=== PATIENT | male | born 1965 | race Caucasian/White ===

== ENCOUNTER 2021-07-15 00:12 | Day surgery (SDC) | payer OTHER, SELFPAY ==
[2021-07-08 11:41] VITALS: BMI 26.7
[2021-07-15 06:56] VITALS: BP 123/92; PULSE 89; RESP 20; TEMP 36.2; O2SAT 99; BMI 26.4
[2021-07-15] MEDS: LACTATED RINGERS 1,000 ML 150 ML IV CONT (07:13)
--- NOTE | 2021-07-15 07:21 | WPDGICN ---
Assessment and Plan Assessment and plan (1) Encounter for screening colonoscopy: Code(s): Z12.11 - Encounter for screening for malignant neoplasm of colon Status: Acute Assessment and Plan: Patient presents today for screening colonoscopy. He appears to be at average risk for colon polyps. Further recommendations will be given after endoscopy. GI Consult Note Consult date/time: 07/15/21 07:21 HPI: Traivs Perez Jr. is a 56 year old male Presents for screening colonoscopy. Patient reports that his current weight appetite and bowel movements are normal. He denies abdominal pain. Patient has had no bleeding. Patient denies any prior history of colon polyps has never had previous colonoscopy. Family history is noncontributory. Neoplasia screening will be performed today. Review of Systems Review of Systems: All systems reviewed & are unremarkable except as noted in HPI and below PMFSH Family History Family History Father Family history of malignant neoplasm, Onset Age: 55 Patient's father is Mother Family history of diabetes mellitus in first degree relative Social History Social History Smoking status: Never smoker Second hand tobacco smoke exposure: No Smoking end date: 05/07/95 Alcohol intake: current Drinks per week: 12 Alcohol use details: BEERS Substance use: never Substance use type: does not use Living arrangements: with family Spiritual care concerns: No Meds Home Medications and Allergies Home Medications Medication Instructions Recorded Confirmed Type cyanocobalamin (vitamin B-12) 1,000 mcg PO DAILY 03/14/19 07/08/21 History 1,000 mcg capsule bupropion HCl 300 mg 24 hr tablet, 300 mg PO QAM #90 tablet 03/16/21 07/08/21 Rx extended release alprazolam [Xanax] 0.5 mg PO BID PRN 07/15/21 07/08/21 History Allergies Allergy/AdvReac Type Severity Reaction Status Date / Time No Known Allergies Allergy Mild Verified 07/15/21 06:55 Vital Signs Vital Signs - 24 hr 07/15/21 06:56 Temperature 97.1 F L Pulse Rate 89 Respiratory Rate 20 Blood Pressure 123/92 H Pulse Oximetry 99 Exam Narrative: Physical exam reveals patient to be alert. Vital signs stable. HEENT exam is unremarkable. Patient is anicteric. Lungs are clear to auscultation and percussion. Heart is without murmur or extra sounds. Abdominal exam bowel sounds are present soft nontender with no organomegaly. Digital external rectal exam is normal.
--- NOTE | 2021-07-15 07:36 | P.PNAN_ITS ---
Anes - Initial Pre Proc Eval Procedure: Operation Date: 07/15/21 08:00 Proposed Procedures p Screening Colonoscopy - Seth Garsia MD Date/Time: 07/15/21 07:36 Surgeon: Seth Garsia MD Pre Op Diagnosis: hx of colon polyps, neoplasm screening Patient Data Age: 56 Gender: M Height: 1.91 m Weight: 95.8 kg Last Vital Signs Temp 97.1 F L 07/15/21 06:56 Pulse 89 07/15/21 06:56 Resp 20 07/15/21 06:56 BP 123/92 H 07/15/21 06:56 Pulse Ox 99 07/15/21 06:56 Allergies Allergy/AdvReac Type Severity Reaction Status Date / Time No Known Allergies Allergy Mild Verified 07/15/21 06:55 Home Medications Medication Instructions Recorded Confirmed Type cyanocobalamin (vitamin B-12) 1,000 mcg PO DAILY 03/14/19 07/08/21 History 1,000 mcg capsule bupropion HCl 300 mg 24 hr tablet, 300 mg PO QAM #90 tablet 03/16/21 07/08/21 Rx extended release alprazolam [Xanax] 0.5 mg PO BID PRN 07/15/21 07/08/21 History Patient hx anesthesia problems: none Family hx anesthesia problems: none Results Review: All pre-operative results and documents have been reviewed as part of the pre-operative evaluation. [facility] Past Medical History Medical History (Updated 07/15/21 @ 07:32 by Blaine Major MD) Anxiety and depression Hyperlipidemia Family History Family History Father Family history of malignant neoplasm, Onset Age: 55 Patient's father is Mother Family history of diabetes mellitus in first degree relative Social History Social History Smoking status: Never smoker Second hand tobacco smoke exposure: No Smoking end date: 05/07/95 Alcohol intake: current Drinks per week: 12 Alcohol use details: BEERS Substance use: never Substance use type: does not use Living arrangements: with family Spiritual care concerns: No Anes - Eval Final PreProcedure Day of Procedure 07/15/21 07:36 Patient weight: normal Heart: regular rate and rhythm Lungs: clear to auscultation Airway: Mallampati scale class III Neurological: alert and oriented Last oral intake: >/= 8 hours ASA classification: II Emergent: no Anesthetic plan: proceed Anesthesia type and monitoring: general GIVS and standard monitoring Results Review: All pre-operative results and documents have been reviewed as part of the pre-operative evaluation. Informed Consent: The patient's anesthetic plan and its attendant risks and benefits were discussed with the patient/family/POA. Questions were solicited and answers provided to the satisfaction of the patient/family/POA.
[2021-07-15 08:10] VITALS: BP 110/79; PULSE 76; RESP 23; O2SAT 99
[2021-07-15 08:20] VITALS: BP 115/80; PULSE 77; RESP 22; O2SAT 98
[2021-07-15 08:30] VITALS: BP 124/87; PULSE 76; RESP 20; O2SAT 98
== END 2021-07-15 08:38 | disposition home or self-care (01) ==
PROVIDERS: PCP Internal Medicine; Visit Provider Internal Medicine Gastroenterology
PROC: 0DJD8ZZ Inspection of Lower Intestinal Tract, Via Natural or Artificial Opening Endoscopic (ICD-10-PCS; CPT 45378; principal; 2021-07-15 08:00)
DX: Z12.11 Encounter for screening for malignant neoplasm of colon (principal); K64.8 Other hemorrhoids
CPT/HCPCS: 45378; J2704; J7120

== ENCOUNTER 2021-11-01 13:48 | Outpatient (CLI) | payer OTHER, SELFPAY ==
--- NOTE | ~2021-11-01 | US_ITS ---
EXAMINATION: US art doppler w press LE BI DATE: 11/01/2021 18:28 CDT INDICATION: Peripheral vascular disease TECHNIQUE: Segmental pressures and plethysmographic and Doppler waveforms of the brachial and lower e xtremity arteries were obtained. COMPARISON: None. FINDINGS: Right and left brachial artery pressures of 122 mm Hg and 117 mm Hg, respectively, are concordant (no rmal difference <= 30 mmHg). The right high-thigh pressure index is 1.25 (normal > 1.2). The right ankle-brachial index (ALON) is 1 .09 (normal >= 0.9-1.0). The right great toe-brachial index (TBI) is 0.72 (normal >= 0.60). The right lower extremity segmental pressure gradients are normal (normal gradients <= 20-30 mmHg between navin cent levels on the same leg or the same levels on the two legs). Arterial Doppler waveforms are bipha sic. The left high-thigh pressure index is 1.29. The left ALON is 1.07. The left TBI is 0.65. The left lowe r extremity segmental pressure gradients are normal. Arterial Doppler waveforms are biphasic and trip hasic. IMPRESSION: 1. Normal lower extremity arterial Doppler. Reviewed, dictated and finalized at location A.
== END 2021-11-01 13:49 | disposition home or self-care (01) ==
PROVIDERS: PCP Internal Medicine; Visit Provider Internal Medicine
DX: I73.9 Peripheral vascular disease, unspecified (principal)
CPT/HCPCS: 93923